=== PATIENT | female | born 1950 | race Caucasian/White ===

== ENCOUNTER 2018-10-27 09:28 | Emergency (ER) | payer MEDICARE, OTHER ==
[~2018-10-27] VITALS: Ht 160 cm; Wt 61.2 kg
[2018-10-27] MEDS ORDERED: GABA800 PO (09:51)
[2018-10-27] MEDS ORDERED: Inderal80 MG (09:51)
[2018-10-27] MEDS ORDERED: Hydrocodone-Ap1 EA20 PO (09:51)
[2018-10-27] MEDS ORDERED: ROSU10TA PO (09:52)
[2018-10-27] MEDS ORDERED: AMLO5 PO (09:52)
[2018-10-27] MEDS ORDERED: LORA1 PO (09:52)
[2018-10-27] MEDS ORDERED: ALBU90OI INH (09:53)
[2018-10-27] MEDS ORDERED: ALEN70 PO (09:53)
[2018-10-27] MEDS ORDERED: PRED20 PO (09:53)
[2018-10-27 11:00] LABS: Calcium, Ionized (POC) 1.04 mmol/L (1.10-1.46); Chloride (POC) 108 mmol/L (98-108); Creatinine (POC) 0.7 mg/dL (0.6-1.0); Glucose (ISTAT POC) 102 mg/dL (70-99); Hemoglobin (POC) 13.3 g/dL (12.0-16.0); Potassium (POC) 3.6 mmol/L (3.5-5.5); Sodium (POC) 146 mmol/L (135-148); Total CO2 (POC) 26 mmol/L (21-32)
[2018-10-27] MEDS ORDERED: Norco 5-325 Ta1 EACH PO (11:59)
[2018-10-27] MEDS ORDERED: Colace250 MG PO (11:59)
== END 2018-10-27 12:14 | disposition home or self-care (01) ==
LOC: ER 09:28
PROVIDERS: Internal Medicine
DX: S22.089A Unspecified fracture of T11-T12 vertebra, initial encounter for closed fracture (principal); I10 Essential (primary) hypertension; F41.9 Anxiety disorder, unspecified; E78.5 Hyperlipidemia, unspecified; Z88.0 Allergy status to penicillin; Z79.899 Other long term (current) drug therapy; Z79.52 Long term (current) use of systemic steroids; W18.30XA Fall on same level, unspecified, initial encounter
CPT/HCPCS: 72100; 80047; 85014; 96360; 96361; 99284-25; J7030

== ENCOUNTER 2018-10-31 23:28 | Emergency (ER) | payer MEDICARE, OTHER ==
[~2018-10-31] VITALS: Ht 160 cm; Wt 61.2 kg
[~2018-10-31 23:28] MED LIST: ALBU90OI INH; ALEN70 PO; AMLO5 PO; Colace250 MG PO; GABA800 PO; Hydrocodone-Ap1 EA20 PO; Inderal80 MG; LORA1 PO; Norco 5-325 Ta1 EACH PO; PRED20 PO; ROSU10TA PO
[2018-11-01] MEDS ORDERED: LIDO700A20 TOP (01:01)
[2018-11-01] MEDS ORDERED: IBUP600 PO (01:01)
[2018-11-01] MEDS ORDERED: Norco 5-325 Ta1 EACH PO (01:01)
[2018-11-01] MEDS ORDERED: ONDA4ODT MM (01:11)
== END 2018-11-01 01:24 | disposition home or self-care (01) ==
LOC: ER 23:28
DX: S22.089D Unspecified fracture of T11-T12 vertebra, subsequent encounter for fracture with routine healing (principal); W19.XXXD Unspecified fall, subsequent encounter; Z88.0 Allergy status to penicillin; Z79.899 Other long term (current) drug therapy; Z79.52 Long term (current) use of systemic steroids; I10 Essential (primary) hypertension; E78.5 Hyperlipidemia, unspecified; F41.9 Anxiety disorder, unspecified; F17.200 Nicotine dependence, unspecified, uncomplicated
CPT/HCPCS: 72080; 96374; 96375; 99283-25; J2405; J3010

== ENCOUNTER 2019-04-11 13:09 | Observation (INO) | payer MEDICARE, OTHER ==
[~2019-04-11] VITALS: Ht 162.6 cm; Wt 68.0 kg
[~2019-04-11 13:09] MED LIST changes: +IBUP600 PO; -Inderal80 MG; +LIDO700A20 TOP; +ONDA4ODT MM; +PROP80ER PO; -ROSU10TA PO; +ROSU5 PO
[2019-04-11 13:38] LABS: BASOPHILS ABSOLUTE AUTO 0.04 K/mm3 (0.00-0.23); BASOPHILS PERCENT AUTO 1 % (0-2); EOSINOPHILS ABSOLUTE AUTO 0.09 K/mm3 (0.00-0.68); EOSINOPHILS PERCENT AUTO 1 % (0-6); Hematocrit 44.6 % (33.0-51.0); Hemoglobin 14.8 g/dL (11.5-16.0); IMMATURE GRAN ABSOLUTE AUTO 0.03 K/mm3 (0.00-0.10); IMMATURE GRAN PERCENT AUTO 0 % (0-1); LYMPHOCYTES ABSOLUTE AUTO 1.56 K/mm3 (0.84-5.20); LYMPHOCYTES PERCENT AUTO 23 % (21-46); MONOCYTES ABSOLUTE AUTO 0.77 K/mm3 (0.16-1.47); MONOCYTES PERCENT AUTO 11 % (4-13); Mean Corpuscular HGB 33.5 pg (26.0-34.0); Mean Corpuscular HGB Conc 33.2 g/dL (31.5-36.5); Mean Corpuscular Volume 101 fL (80-100); Mean Platelet Volume 10.1 fL (9.1-12.4); NEUTROPHILS ABSOLUTE AUTO 4.36 K/mm3 (1.96-9.15); NEUTROPHILS PERCENT AUTO 64 % (41-73); Platelet Count 182 K/mm3 (150-400); RDW Coefficient Variation 12.9 % (11.7-14.2); RDW Standard Deviation 48.3 fL (35.1-46.3); Red Blood Cell Count 4.42 M/mm3 (3.80-5.20); White Blood Cell Count 6.85 K/mm3 (4.00-11.30)
[2019-04-11 14:49] LABS: Alanine Aminotransfer (ALT/SGP 15 U/L (12-78); Albumin, Blood 3.3 g/dL (3.4-5.0); Albumin/Globulin Ratio 1.1 (0.8-1.8); Alk Phos 73 U/L (50-136); Anion Gap 3 mmol/L (6-16); Aspartate Aminotrans (AST/SGOT 28 U/L (12-37); Bilirubin, Total 0.5 mg/dL (0.1-1.0); Blood Urea Nitrogen 6 mg/dL (8-24); Bun/Creatinine Ratio 7.8 (12.0-20.0); CO2, Blood 28 mmol/L (21-32); Calcium, Blood 8.4 mg/dL (8.5-10.1); Chloride, Blood 110 mmol/L (98-108); Creatinine, Blood 0.77 mg/dL (0.40-1.00); Glomerular Filtration Rate >60 (60-); Glucose, Blood 72 mg/dL (70-99); Potassium, Blood 4.4 mmol/L (3.5-5.5); Sodium, Blood 141 mmol/L (136-145); Total Protein, Blood 6.3 g/dL (6.4-8.2)
[2019-04-11 14:56] LABS: Free Thyroxine 0.78 ng/dL (0.70-1.60); Magnesium, Blood 2.2 mg/dL (1.6-2.4)
[2019-04-11 14:59] LABS: Thyroid Stimulating Hormone 1.21 uIU/mL (0.360-4.800)
[2019-04-11] MEDS ORDERED: Lamotrigine100 MG PO (14:59)
[2019-04-11 15:14] LABS: Source, Urine Clean Catch
[2019-04-11 15:23] LABS: Bilirubin, Urine Neg (Neg); Blood, Urine 1+ (Neg); Glucose Qualitative, Urine Neg (Neg); Ketones, Urine Neg (Neg); Leukocyte Esterase, Urine Neg (Neg); Nitrite, Urine Neg (Neg); Protein, Urine Neg (Neg); Urobilinogen, Urine NORM (Normal)
[2019-04-11 15:32] LABS: Appearance, Urine Clear (Clear); Color, Urine Yellow (P-Yellow)
[2019-04-11 15:33] LABS: Bacteria Not Seen /hpf; Red Blood Cells, Urine 0-2 /hpf (0-2); Squamous Epithelial Cells Rare /hpf (Few); White Blood Cells, Urine 0-2 /hpf (0-5)
[2019-04-11] MEDS ORDERED: GABA400 PO (15:39)
[2019-04-11] MEDS ORDERED: ASCO500 PO (16:06)
[2019-04-11] MEDS ORDERED: DIPH50 PO (16:06)
[2019-04-11] MEDS ORDERED: VITAMIN D5000 UNIT PO (16:06)
--- NOTE | 2019-04-11 19:36 | NUR ---
Transfer report recieved from Lucie ARIZA in ER on PT being admitted with nilat le weakness and dizziness. T 12 compression fx 09/2018 ct of head and spine negative of acute changes. Await admission
--- NOTE | 2019-04-12 05:19 | NUR ---
68 year old Female appears older than actual age admitted with bilateral LE weakness and dizziness. PT admits to falling recently. DTR and [place] live with PT who had T 12 compression fx in 09/2018. CT of spine and head showed no acute changes but compression fx still present. PT told ER she did wear TLSO brace but has been released from wearing. Very poor safety awareness, PT is labile at times. Weepy and emotional intermittantly. Forgetful and angry we are using fall precautions including bed alarm. Medicated with tylenol 650 mg for co gen body aches 05/09 with helpful effect. Ativan 1 mg po x 1 for anxiety with some relief. Sets off bed alarm multiple times wanting to self transfer. Smoker and out x 1 in WC to smoke with DTR.Has pacemaker and is atrial paced. DNR status PT denies Polst or AD says everyone just knows. HAs PT eval pending. Transferred to [facility] with FWW and gait belt.
--- NOTE | 2019-04-12 06:30 | NUR ---
PT"S DTR called and said her Mom falls at home and she is unsafe to ambulate. She has 14 steps to get in and out of Home. PT has poor safety awareness, fall precautions continue and PT has attempted multiple times to get out of bed unassisted. Educated on fall prevention PT and DTR and Son in law.
--- NOTE | 2019-04-12 17:55 | NUR ---
SHIFT SUMMARY 68 YR OLD FEMALE ADMITTED FOR BLE WEAKNESS. DNR CODE. FREQUENT FALLS AT HOME. PT STATES DOUBLE VISION PRECEDES THESE FALLS. PACEMAKER. REGULAR DIET. PT EVAL TODAY RECOMMENDS HOME WITH FWW AND HOME HEALTH, SUPERVISION FROM FAMILY WHEN AMBULATING STAIRS. SHE LIVES WITH DAUGHTER KRYSTLE. NO IV ACCESS. ROOM AIR. HX: PTSD, ANXIETY, T-12 FRACTURE, AFIB, ARTHRITIS. ATIVAN IS AVAILABLE BID. I DID GIVE ONE DOSE DURING MY SHIFT EARLY. THIS AFTERNOON HER AFFECT HAS BEEN MORE POSITIVE AND CONTENT. SCHEDULED ASPIRIN WAS ADDED TODAY FOR PAIN. PLAN IS FOR POSSIBLE DC TOMORROW W/HEALTH INFORMATION TECH ASSISTANCE OFFERED.
--- NOTE | 2019-04-13 04:55 | NUR ---
SHIFT SUMMARY: 68 Y/O FEMALE RESTED COMFORTABLY ALL SHIFT, DENIES PAIN OR NAUSEA, GAIT SLOW AND STEADY IN ROOM VIA WALKER, ALERT AND ORIENTED X 4, PT HOPING FOR POSSIBLE DISCHARGE HOME TODAY TO [facility]. PTS BED LOW POSITION, CALL LIGHT AT SIDE.
[2019-04-13] MEDS ORDERED: MOTION RELIEF25 MG PO (09:09)
--- NOTE | 2019-04-13 09:10 | NUR ---
FOLLOW UP APPOINTMENTS SCHEDULE WITH DR RHOADES May AT 10:10, THEY DO NOT HAVE ANYTHING SOONER FOR THE PT. ALSO DR GASTON WEEKS DOES NOT HAVE AVAILABILITY, APPT MADE WITH CARLIE GENAO FOR March AT 12:45. PT REQUESTING [id number].
--- NOTE | 2019-04-13 10:39 | NUR ---
PT DISCHARGED PT DISCHARGED AT 1006. PT IN STABLE CONDITION WITH VSS. NO CHANGES IN ASSESSMENT. PT INSTRUCTED ON DC INFO & WHEELED OUT BY HER RIDE. PT GIVEN RIDE HOME BY FRIEND. PT DENIED FURTHER NEED FOR INSTRUCTIONS PRIOR TO DC.
== END 2019-04-13 10:10 | disposition home health service (06) ==
LOC: ER 13:09 → MEDS 13:10 → ENPENDDIS 04-13 08:40 → MEDS 04-13 10:10
PROVIDERS: Emergency Medicine; ADMIT Hospitalist
DX: R29.898 Other symptoms and signs involving the musculoskeletal system (principal); R42 Dizziness and giddiness; M48.04 Spinal stenosis, thoracic region; I48.91 Unspecified atrial fibrillation; F43.12 Post-traumatic stress disorder, chronic; Z87.891 Personal history of nicotine dependence; Z79.899 Other long term (current) drug therapy; Z87.81 Personal history of (healed) traumatic fracture; W19.XXXA Unspecified fall, initial encounter
CPT/HCPCS: 70450; 71046; 72131; 80053; 81001; 83735; 84439; 84443; 85025; 85651; 86140; 93005; 93010; 97116; 97162; 99285-25; A9270; G0378; Q0163

== ENCOUNTER 2019-04-27 12:02 | Emergency (ER) | payer MEDICARE, OTHER ==
[~2019-04-27] VITALS: Ht 162.6 cm; Wt 62.6 kg
[~2019-04-27 12:02] MED LIST changes: +ASCO500 PO; +DIPH50 PO; +GABA400 PO; +Lamotrigine100 MG PO; +MOTION RELIEF25 MG PO; +VITAMIN D5000 UNIT PO
[2019-04-27 13:06] LABS: BASOPHILS ABSOLUTE AUTO 0.05 K/mm3 (0.00-0.23); BASOPHILS PERCENT AUTO 1 % (0-2); EOSINOPHILS ABSOLUTE AUTO 0.11 K/mm3 (0.00-0.68); EOSINOPHILS PERCENT AUTO 2 % (0-6); Hematocrit 46.9 % (33.0-51.0); Hemoglobin 15.5 g/dL (11.5-16.0); IMMATURE GRAN ABSOLUTE AUTO 0.02 K/mm3 (0.00-0.10); IMMATURE GRAN PERCENT AUTO 0 % (0-1); LYMPHOCYTES PERCENT AUTO 24 % (21-46); MONOCYTES ABSOLUTE AUTO 0.88 K/mm3 (0.16-1.47); MONOCYTES PERCENT AUTO 12 % (4-13); Mean Corpuscular Volume 100 fL (80-100); Mean Platelet Volume 10.8 fL (9.1-12.4); NEUTROPHILS ABSOLUTE AUTO 4.68 K/mm3 (1.96-9.15); NEUTROPHILS PERCENT AUTO 62 % (41-73); Platelet Count 156 K/mm3 (150-400); RDW Coefficient Variation 12.7 % (11.7-14.2); RDW Standard Deviation 47.7 fL (35.1-46.3); White Blood Cell Count 7.54 K/mm3 (4.00-11.30)
[2019-04-27 13:15] LABS: Alanine Aminotransfer (ALT/SGP 17 U/L (12-78); Albumin, Blood 3.9 g/dL (3.4-5.0); Albumin/Globulin Ratio 1.2 (0.8-1.8); Alk Phos 89 U/L (50-136); Anion Gap 6 mmol/L (6-16); Aspartate Aminotrans (AST/SGOT 20 U/L (12-37); Bilirubin, Total 0.6 mg/dL (0.1-1.0); Blood Urea Nitrogen 13 mg/dL (8-24); Bun/Creatinine Ratio 20.9 (12.0-20.0); CO2, Blood 27 mmol/L (21-32); Calcium, Blood 9.3 mg/dL (8.5-10.1); Chloride, Blood 107 mmol/L (98-108); Creatinine, Blood 0.62 mg/dL (0.40-1.00); Globulin, Blood 3.3 g/dL (2.2-4.0); Glomerular Filtration Rate >60 (60-); Glucose, Blood 101 mg/dL (70-99); Potassium, Blood 4.2 mmol/L (3.5-5.5); Sodium, Blood 140 mmol/L (136-145); Total Protein, Blood 7.2 g/dL (6.4-8.2); Troponin I <0.015 ng/mL (0.000-0.040)
== END 2019-04-27 15:24 | disposition home or self-care (01) ==
LOC: ER 12:02
PROVIDERS: Physician Assistant
DX: I10 Essential (primary) hypertension (principal); Z79.899 Other long term (current) drug therapy; F17.200 Nicotine dependence, unspecified, uncomplicated
CPT/HCPCS: 36415; 71046; 80053; 84484; 85025; 93005; 93010; 99284-25

== ENCOUNTER 2023-05-07 11:56 | Day surgery (SDC) | payer MEDICARE, OTHER | END 2023-05-07 16:22 | disposition home or self-care (01) | LOC: ORSCSDS 11:56 | PROC: 0DBL8ZX Excision of Transverse Colon, Via Natural or Artificial Opening Endoscopic, Diagnostic (ICD-10-PCS; principal; 2023-05-07) | PROC: 0DBH8ZX Excision of Cecum, Via Natural or Artificial Opening Endoscopic, Diagnostic (ICD-10-PCS; principal; 2023-05-07) | PROC: 0DBN8ZX Excision of Sigmoid Colon, Via Natural or Artificial Opening Endoscopic, Diagnostic (ICD-10-PCS; principal; 2023-05-07) | DX: K59.09 Other constipation (principal); D12.0 Benign neoplasm of cecum; D12.3 Benign neoplasm of transverse colon; K63.5 Polyp of colon; K63.89 Other specified diseases of intestine; K57.30 Diverticulosis of large intestine without perforation or abscess without bleeding; K64.4 Residual hemorrhoidal skin tags; I10 Essential (primary) hypertension; J45.909 Unspecified asthma, uncomplicated; E78.5 Hyperlipidemia, unspecified; Z95.0 Presence of cardiac pacemaker; M79.7 Fibromyalgia; Z79.899 Other long term (current) drug therapy; Z87.891 Personal history of nicotine dependence ==

== ENCOUNTER 2024-04-22 06:10 | Day surgery (SDC) | payer MEDICARE, OTHER ==
[~2024-04-22] VITALS: Ht 160 cm; Wt 70.5 kg
[~2024-04-22 06:10] MED LIST changes: +CYCL10 PO; +LORAZEPAM0.5 MG PO; +LOSARTAN POTASS25 M2 PO; +Lactated Ringer's 1,000 ML IV ONE; +METO100ER PO; +METOPROLOL SUCC25 MG PO; +NEURONTIN40010 PO; +ROSUVASTATIN CA20 MG PO
[2024-04-22] MEDS ORDERED: OxyCODONE HCL 10 MG TABCR ONE (06:43)
[2024-04-22] MEDS ORDERED: Acetaminophen 500 MG Tab ONE (06:43)
[2024-04-22] MEDS ORDERED: Chlorhexidine Mouth Care 15 ML UDC MT SCH (06:50)
[2024-04-22] MEDS ORDERED: CeFAZolin Sodium 2,000 MG VIAL ONE (06:52)
[2024-04-22] MEDS ORDERED: FentaNYL Citrate 50 MCG/ML 2 ML Injection ONE (06:52)
[2024-04-22] MEDS ORDERED: propofoL 20 ML IV ONE (06:52)
[2024-04-22] MEDS ORDERED: NS 50 ML IV ONE (06:53)
[2024-04-22] MEDS ORDERED: Ondansetron HCl 2 MG / ML 2ML Vial ONE ×2 (06:54→09:21)
[2024-04-22] MEDS ORDERED: Dexamethasone Sod Phos 10 MG/ML 1ML VIAL ONE ×2 (06:54→09:21)
[2024-04-22] MEDS ORDERED: METO50ER PO (06:58)
[2024-04-22] MEDS ORDERED: Ropivacaine 0.5% HCL/PF 5 MG/ML 30ML Vial ONE (06:59)
[2024-04-22] MEDS ORDERED: KAPSPARGO SPRIN50 MG PO (07:00)
[2024-04-22] MEDS ORDERED: ELIQUIS5 M3 PO (07:02)
[2024-04-22] MEDS ORDERED: Methocarbamol750 MG (07:03)
[2024-04-22] MEDS ORDERED: FUROSEMIDE20 MG PO (07:04)
[2024-04-22] MEDS ORDERED: MAGNESIUM (07:05)
[2024-04-22] MEDS ORDERED: FLUT.05NI (07:05)
[2024-04-22] MEDS ORDERED: Lactated Ringer's 1,000 ML IV ONE (07:10)
--- NOTE | 2024-04-22 07:57 | NUR ---
[facility] [facility] NOTIFIED THAT PATIENT LAST TOOK ELIQUIS "3 OR 4 DAYS AGO" PER DR RHOADES OK TO PROCEED
[2024-04-22] MEDS ORDERED: ePHEDrine Sulfate 50 MG/ML 1ML Injection ONE (08:09)
--- NOTE | 2024-04-22 08:39 | NUR ---
04/22/24 0839 Maribeth Carcamo 2X SASFETY STRAPS WITH 1X GEL PAD UNDER EACH STRAP. 1X GEL PAD BETWEEN PTS ARM AND RIGHT ARM BOARD. 1X GEL UNDER PTS BOTTOM. STANDARD FOAM BUMPER OVER PTS FACE.
[2024-04-22] MEDS ORDERED: Sugammadex Sodium 200 MG/2ML SDV (100 MG/ML) ONE (09:14)
[2024-04-22] MEDS ORDERED: Phenylephrine HCl 100 MCG/ML-NS 10MLSYR (1MG/10ML) ONE (09:20)
[2024-04-22] MEDS ORDERED: Rocuronium Bromide 10 MG/ML 5ML Injection IV ONE ×2 (09:20)
--- NOTE | 2024-04-22 10:35 | NUR ---
04/22/24 1034 JOVANNI MARTIN TRIED MULTIPLE SITES FOR EKG LEADS. ALL SHOW MUCH ARTIFACT. HAD DR. MCRAE LOOK AT MONITOR. STATES IT WAS FINE IN OR. CONFIRMED THAT PT WAS NOT MOVING. HE WAS NOT CONCERNED OF READING FOR 3LEAD.
--- NOTE | 2024-04-22 10:44 | NUR ---
04/22/24 1044 JOVANNI MARTIN NOTIFIED OF NEED FOR XRAY
[2024-04-22 10:52] VITALS: BP 93/65
[2024-04-22] MEDS ORDERED: Ipratropium/Albuterol SulF 2.5-0.5MG/3 ML Amp ONE (11:36)
== END 2024-04-22 12:31 | disposition home or self-care (01) ==
LOC: ORSCSDS 06:10
PROVIDERS: Orthopaedic Surgery
PROC: 0RRK00Z Replacement of Left Shoulder Joint with Reverse Ball and Socket Synthetic Substitute, Open Approach (ICD-10-PCS; principal; 2024-04-22 07:30)
DX: M19.012 Primary osteoarthritis, left shoulder (principal); I10 Essential (primary) hypertension; E78.5 Hyperlipidemia, unspecified; I48.0 Paroxysmal atrial fibrillation; Z79.01 Long term (current) use of anticoagulants; I50.9 Heart failure, unspecified; Z87.891 Personal history of nicotine dependence; Z79.899 Other long term (current) drug therapy; J44.9 Chronic obstructive pulmonary disease, unspecified; D89.89 Other specified disorders involving the immune mechanism, not elsewhere classified; F41.9 Anxiety disorder, unspecified; F32.A Depression, unspecified
CPT/HCPCS: 73030; A9270; C1713; C1776; J0690; J1100; J2371; J2405; J2704; J2795; J3010; J7120

== ENCOUNTER 2024-09-08 07:54 | Day surgery (SDC) | payer MEDICARE, OTHER ==
[~2024-09-08] VITALS: Ht 162.6 cm; Wt 66.0 kg
[~2024-09-08 07:54] MED LIST changes: +Balanced Salt Epinephrine Irrigation Solution 500 mL IR SCH; +ELIQUIS5 M3 PO; +FLUT.05NI; +FUROSEMIDE20 MG PO; +KAPSPARGO SPRIN50 MG PO; -Lactated Ringer's 1,000 ML IV ONE; +Lidocaine HCl/Pf 1% 5 ML VIAL XX SCH; +MAGNESIUM; +METO50ER PO; +Methocarbamol750 MG; +Moxifloxacin HCL 0.5 MG/0.1 ML 0.4MLSYR LEFTEYE SCH; +PHENYLEPHRINE\\TROPICAMIDE\\TETRACAINE OPHTHALMIC DILATING SOLN LEFTEYE PRN; +Povidone-Iodine 450 DROP/30 ML Solution LEFTEYE SCH; +Povidone-Iodine 450 DROP/30 ML Solution ONE; +Tetracaine HCl/Pf 0.5% Opth Soln 4 ml ONE
[2024-09-08] MEDS ORDERED: CELE100 PO (08:28)
[2024-09-08] MEDS ORDERED: GABA100 PO (08:28)
--- NOTE | 2024-09-08 08:36 | NUR ---
09/08/24 0836 Marion Tomlin AT 0833 PLEDANIELET AT 0860
[2024-09-08] MEDS ORDERED: Diazepam 2 MG Tab ONE (08:38)
[2024-09-08] MEDS ORDERED: Tetracaine HCl 0.5% Opth Soln 15 ml LEFTEYE ONE (09:05)
[2024-09-08 09:53] VITALS: BP 113/85
== END 2024-09-08 09:43 | disposition home or self-care (01) ==
LOC: ORSCSDS 07:54
PROVIDERS: Student in an Organized Health Care Education/Training Program
PROC: 08RK3JZ Replacement of Left Lens with Synthetic Substitute, Percutaneous Approach (ICD-10-PCS; principal; 2024-09-08 09:30)
DX: H25.813 Combined forms of age-related cataract, bilateral (principal); H35.3221 Exudative age-related macular degeneration, left eye, with active choroidal neovascularization; H35.3112 Nonexudative age-related macular degeneration, right eye, intermediate dry stage; E78.5 Hyperlipidemia, unspecified; F32.9 Major depressive disorder, single episode, unspecified; Z95.0 Presence of cardiac pacemaker; J45.909 Unspecified asthma, uncomplicated; I10 Essential (primary) hypertension; F41.1 Generalized anxiety disorder; I48.91 Unspecified atrial fibrillation; Z87.891 Personal history of nicotine dependence; Z79.01 Long term (current) use of anticoagulants; Z79.899 Other long term (current) drug therapy
CPT/HCPCS: A9270; V2632

== ENCOUNTER 2024-09-15 07:52 | Day surgery (SDC) | payer MEDICARE, OTHER ==
[~2024-09-15] VITALS: Ht 162.6 cm; Wt 65.9 kg
[~2024-09-15 07:52] MED LIST changes: +CELE100 PO; +GABA100 PO; -Moxifloxacin HCL 0.5 MG/0.1 ML 0.4MLSYR LEFTEYE SCH; +Moxifloxacin HCL 0.5 MG/0.1 ML 0.4MLSYR RIGHTEYE SCH; -PHENYLEPHRINE\\TROPICAMIDE\\TETRACAINE OPHTHALMIC DILATING SOLN LEFTEYE PRN; +PHENYLEPHRINE\\TROPICAMIDE\\TETRACAINE OPHTHALMIC DILATING SOLN RIGHTEYE PRN; -Povidone-Iodine 450 DROP/30 ML Solution LEFTEYE SCH; +Povidone-Iodine 450 DROP/30 ML Solution RIGHTEYE SCH
[2024-09-15] MEDS ORDERED: Diazepam 2 MG Tab ONE (08:34)
--- NOTE | 2024-09-15 08:50 | NUR ---
09/15/24 0850 Leticia Beauchamp CALL LIGHT WITHIN REACH. PT TOOK 5MG VALIUM PO PRIOR TO ARRIVAL TO [facility]. PT STATES ANXIETY LEVEL STILL AT 7/10, 2MG VALIUM PO GIVEN AT 0840 PER ORDER. TETRACAINE IN AT 0835 IN RIGHT EYE AND PLEDGETT IN AT 0836
[2024-09-15] MEDS ORDERED: Tetracaine HCl 0.5% Opth Soln 15 ml RIGHTEYE ONE (09:16)
[2024-09-15 09:38] VITALS: BP 111/66
== END 2024-09-15 10:02 | disposition home or self-care (01) ==
LOC: ORSCSDS 07:52
PROVIDERS: Student in an Organized Health Care Education/Training Program
PROC: 08RJ3JZ Replacement of Right Lens with Synthetic Substitute, Percutaneous Approach (ICD-10-PCS; principal; 2024-09-15 09:30)
DX: H25.811 Combined forms of age-related cataract, right eye (principal); Z96.1 Presence of intraocular lens; I10 Essential (primary) hypertension; E78.5 Hyperlipidemia, unspecified; I48.91 Unspecified atrial fibrillation; Z95.0 Presence of cardiac pacemaker; F41.9 Anxiety disorder, unspecified; M79.7 Fibromyalgia; Z87.891 Personal history of nicotine dependence; Z79.01 Long term (current) use of anticoagulants; Z79.899 Other long term (current) drug therapy
CPT/HCPCS: A9270; V2632

== ENCOUNTER 2025-01-12 15:56 | Emergency (ER) | payer MEDICARE, OTHER ==
[~2025-01-12] VITALS: Ht 165.1 cm; Wt 77.1 kg
[~2025-01-12 15:56] MED LIST changes: -Balanced Salt Epinephrine Irrigation Solution 500 mL IR SCH; -Lidocaine HCl/Pf 1% 5 ML VIAL XX SCH; -Moxifloxacin HCL 0.5 MG/0.1 ML 0.4MLSYR RIGHTEYE SCH; -PHENYLEPHRINE\\TROPICAMIDE\\TETRACAINE OPHTHALMIC DILATING SOLN RIGHTEYE PRN; -Povidone-Iodine 450 DROP/30 ML Solution ONE; -Povidone-Iodine 450 DROP/30 ML Solution RIGHTEYE SCH; -Tetracaine HCl/Pf 0.5% Opth Soln 4 ml ONE
[2025-01-12 17:31] LABS: Albumin, Blood 3.5 g/dL (3.4-5.0); Albumin/Globulin Ratio 1.3 (0.8-1.8); Bilirubin, Total 0.9 mg/dL (0.1-1.0); Bun/Creatinine Ratio 25.9 (12.0-20.0); Calcium, Blood 9.5 mg/dL (8.5-10.1); Creatinine, Blood 0.85 mg/dL (0.40-1.00); Globulin, Blood 2.7 g/dL (2.2-4.0); Potassium, Blood 4.8 mmol/L (3.5-5.5); Total Protein, Blood 6.2 g/dL (6.4-8.2)
[2025-01-12 17:34] LABS: BASOPHILS ABSOLUTE AUTO 0.02 K/mm3 (0.00-0.23); BASOPHILS PERCENT AUTO 0 % (0-2); EOSINOPHILS PERCENT AUTO 0 % (0-6); Hematocrit 37.8 % (33.0-51.0); Hemoglobin 12.9 g/dL (11.5-16.0); IMMATURE GRAN ABSOLUTE AUTO 0.07 K/mm3 (0.00-0.10); IMMATURE GRAN PERCENT AUTO 1 % (0-1); LYMPHOCYTES PERCENT AUTO 11 % (21-46); MONOCYTES ABSOLUTE AUTO 0.39 K/mm3 (0.16-1.47); MONOCYTES PERCENT AUTO 4 % (4-13); Mean Corpuscular HGB 33.2 pg (26.0-34.0); Mean Corpuscular HGB Conc 34.1 g/dL (31.5-36.5); Mean Corpuscular Volume 97 fL (80-100); Mean Platelet Volume 10.3 fL (9.1-12.4); NEUTROPHILS ABSOLUTE AUTO 8.87 K/mm3 (1.96-9.15); NEUTROPHILS PERCENT AUTO 84 % (41-73); Platelet Count 162 K/mm3 (150-400); RDW Coefficient Variation 14.4 % (11.7-14.2); RDW Standard Deviation 50.8 fL (35.1-46.3); Red Blood Cell Count 3.89 M/mm3 (3.80-5.20); White Blood Cell Count 10.55 K/mm3 (4.00-11.30)
[2025-01-12 19:24] VITALS: BP 99/70
== END 2025-01-12 19:31 | disposition home or self-care (01) ==
LOC: ER 15:56
PROVIDERS: Emergency Medicine
DX: R60.0 Localized edema (principal); I10 Essential (primary) hypertension; J45.909 Unspecified asthma, uncomplicated; I48.91 Unspecified atrial fibrillation; Z95.0 Presence of cardiac pacemaker; Z87.891 Personal history of nicotine dependence; Z88.0 Allergy status to penicillin; Z88.8 Allergy status to other drugs, medicaments and biological substances; Z88.5 Allergy status to narcotic agent; Z79.01 Long term (current) use of anticoagulants; Z79.1 Long term (current) use of non-steroidal anti-inflammatories (NSAID); Z79.899 Other long term (current) drug therapy
CPT/HCPCS: 71046; 80053; 83880; 84484; 85025; 93005; 93010; 93971; 99284-25

== ENCOUNTER 2025-05-16 10:58 | Emergency (ER) | payer MEDICARE, OTHER ==
[~2025-05-16] VITALS: Ht 162.6 cm; Wt 63.5 kg
[2025-05-16 12:11] LABS: BASOPHILS ABSOLUTE AUTO 0.05 K/mm3 (0.00-0.23); BASOPHILS PERCENT AUTO 1 % (0-2); EOSINOPHILS ABSOLUTE AUTO 0.07 K/mm3 (0.00-0.68); EOSINOPHILS PERCENT AUTO 1 % (0-6); Hematocrit 34.9 % (33.0-51.0); Hemoglobin 11.6 g/dL (11.5-16.0); IMMATURE GRAN ABSOLUTE AUTO 0.08 K/mm3 (0.00-0.10); IMMATURE GRAN PERCENT AUTO 1 % (0-1); LYMPHOCYTES ABSOLUTE AUTO 2.51 K/mm3 (0.84-5.20); LYMPHOCYTES PERCENT AUTO 32 % (21-46); MONOCYTES ABSOLUTE AUTO 0.84 K/mm3 (0.16-1.47); MONOCYTES PERCENT AUTO 11 % (4-13); Mean Corpuscular HGB Conc 33.2 g/dL (31.5-36.5); Mean Corpuscular Volume 99 fL (80-100); NEUTROPHILS ABSOLUTE AUTO 4.19 K/mm3 (1.96-9.15); NEUTROPHILS PERCENT AUTO 54 % (41-73); NRBC ABSOLUTE 0.00 K/mm3 (0.00-0.02); NRBC Auto 0.0 /100 WBC (0.0-0.2); Platelet Count 156 K/mm3 (150-400); RDW Coefficient Variation 12.6 % (11.7-14.2); RDW Standard Deviation 45.8 fL (35.1-46.3)
[2025-05-16 12:27] LABS: Alanine Aminotransfer (ALT/SGP 33.0 U/L (12-78); Albumin, Blood 3.3 g/dL (3.4-5.0); Albumin/Globulin Ratio 1.0 (0.8-1.8); Anion Gap 6.0 mmol/L (3-11); Aspartate Aminotrans (AST/SGOT 37.0 U/L (12-37); Bilirubin, Total 0.5 mg/dL (0.1-1.0); Blood Urea Nitrogen 11.0 mg/dL (8-24); CO2, Blood 27.0 mmol/L (21-32); Calcium, Blood 8.3 mg/dL (8.5-10.1); Chloride, Blood 106.0 mmol/L (98-108); Creatinine, Blood 0.99 mg/dL (0.40-1.00); Globulin, Blood 3.3 g/dL (2.2-4.0); Glucose, Blood 96.0 mg/dL (70-99); Potassium, Blood 3.9 mmol/L (3.5-5.5); Sodium, Blood 135.0 mmol/L (136-145); Total Protein, Blood 6.6 g/dL (6.4-8.2)
[2025-05-16 13:45] VITALS: BP 119/69
== END 2025-05-16 13:54 | disposition home or self-care (01) ==
LOC: ER 10:58
PROVIDERS: Emergency Medicine
DX: R60.0 Localized edema (principal); J45.909 Unspecified asthma, uncomplicated; I10 Essential (primary) hypertension; F43.10 Post-traumatic stress disorder, unspecified; I48.91 Unspecified atrial fibrillation; Z87.891 Personal history of nicotine dependence; Z79.51 Long term (current) use of inhaled steroids; Z79.899 Other long term (current) drug therapy; Z88.0 Allergy status to penicillin; Z88.5 Allergy status to narcotic agent
CPT/HCPCS: 80053; 83880; 85025; 99284

== ENCOUNTER 2025-08-18 19:19 | Emergency (ER) | payer MEDICARE, OTHER ==
[~2025-08-18] VITALS: Ht 162.6 cm; Wt 65.8 kg
[2025-08-18 19:23] VITALS: BP 147/91
== END 2025-08-18 19:39 | disposition home or self-care (01) ==
LOC: ER 19:19
DX: R57.9 Shock, unspecified (principal); Z76.0 Encounter for issue of repeat prescription; Z87.891 Personal history of nicotine dependence; Z79.51 Long term (current) use of inhaled steroids; Z79.899 Other long term (current) drug therapy; Z88.0 Allergy status to penicillin; Z91.030 Bee allergy status
CPT/HCPCS: 99282

== ENCOUNTER 2025-08-21 10:09 | Inpatient (IN) | payer MEDICARE, OTHER ==
[~2025-08-21] VITALS: Ht 162.6 cm; Wt 67.1 kg
[2025-08-21 10:51] LABS: BASOPHILS ABSOLUTE AUTO 0.04 K/mm3 (0.00-0.23); BASOPHILS PERCENT AUTO 0 % (0-2); EOSINOPHILS ABSOLUTE AUTO 0.06 K/mm3 (0.00-0.68); EOSINOPHILS PERCENT AUTO 1 % (0-6); Hematocrit 36.4 % (33.0-51.0); Hemoglobin 12.6 g/dL (11.5-16.0); IMMATURE GRAN ABSOLUTE AUTO 0.05 K/mm3 (0.00-0.10); IMMATURE GRAN PERCENT AUTO 1 % (0-1); LYMPHOCYTES ABSOLUTE AUTO 0.89 K/mm3 (0.84-5.20); LYMPHOCYTES PERCENT AUTO 9 % (21-46); MONOCYTES ABSOLUTE AUTO 1.04 K/mm3 (0.16-1.47); MONOCYTES PERCENT AUTO 11 % (4-13); Mean Corpuscular HGB Conc 34.6 g/dL (31.5-36.5); Mean Corpuscular Volume 96 fL (80-100); NEUTROPHILS ABSOLUTE AUTO 7.35 K/mm3 (1.96-9.15); NEUTROPHILS PERCENT AUTO 78 % (41-73); NRBC ABSOLUTE 0.00 K/mm3 (0.00-0.02); NRBC Auto 0.0 /100 WBC (0.0-0.2); Platelet Count 184 K/mm3 (150-400); RDW Coefficient Variation 13.3 % (11.7-14.2); RDW Standard Deviation 46.9 fL (35.1-46.3)
[2025-08-21 11:11] LABS: Alanine Aminotransfer (ALT/SGP 27.0 U/L (12-78); Albumin, Blood 3.7 g/dL (3.4-5.0); Albumin/Globulin Ratio 1.0 (0.8-1.8); Anion Gap 12.0 mmol/L (3-11); Aspartate Aminotrans (AST/SGOT 33.0 U/L (12-37); Bilirubin, Total 1.0 mg/dL (0.1-1.0); Blood Urea Nitrogen 17.0 mg/dL (8-24); CO2, Blood 30.0 mmol/L (21-32); Calcium, Blood 9.8 mg/dL (8.5-10.1); Chloride, Blood 92.0 mmol/L (98-108); Creatinine, Blood 1.31 mg/dL (0.40-1.00); Globulin, Blood 3.6 g/dL (2.2-4.0); Glucose, Blood 134.0 mg/dL (70-99); Potassium, Blood 2.8 mmol/L (3.5-5.5); Sodium, Blood 131.0 mmol/L (136-145); Total Protein, Blood 7.3 g/dL (6.4-8.2)
[2025-08-21] MEDS ORDERED: NS 1,000 ML IV SCH ×2 (11:15→18:55)
[2025-08-21 11:26] LABS: Phosphorus, Blood 3.9 mg/dL (2.5-4.9)
[2025-08-21] MEDS ORDERED: FLU VACC TS2025(65UP)/MF59C/PF 45 MCG/0.5 ML SYRINGE IM SCH (18:50)
[2025-08-21] MEDS ORDERED: Ondansetron HCl 2 MG / ML 2ML Vial IV PRN (18:55)
[2025-08-21] MEDS ORDERED: Magnesium Sulf 2 GM/Water 50ML 50 ML IV STA (18:57)
[2025-08-21 20:28] VITALS: BP 109/73
[2025-08-21 21:24] LABS: Source, Urine Clean Catch
[2025-08-21 21:30] LABS: Bilirubin, Urine Neg (Neg); Color, Urine Yellow (P-Yellow); Glucose Qualitative, Urine Neg (Neg); Ketones, Urine Neg (Neg); Leukocyte Esterase, Urine Neg (Neg); Protein, Urine Neg (Neg); Specific Gravity, Urine 1.010 (1.003-1.022); Urobilinogen, Urine NORM (Normal)
[2025-08-21 21:31] LABS: Anion Gap 8.0 mmol/L (3-11); Blood Urea Nitrogen 12.0 mg/dL (8-24); CO2, Blood 28.0 mmol/L (21-32); Calcium, Blood 8.9 mg/dL (8.5-10.1); Chloride, Blood 102.0 mmol/L (98-108); Creatinine, Blood 1.12 mg/dL (0.40-1.00); Glucose, Blood 92.0 mg/dL (70-99); Potassium, Blood 3.3 mmol/L (3.5-5.5); Sodium, Blood 135.0 mmol/L (136-145)
[2025-08-21 23:42] VITALS: BP 102/65
[2025-08-22 04:34] VITALS: BP 121/72
[2025-08-22 05:13] LABS: BASOPHILS ABSOLUTE AUTO 0.04 K/mm3 (0.00-0.23); BASOPHILS PERCENT AUTO 1 % (0-2); EOSINOPHILS ABSOLUTE AUTO 0.09 K/mm3 (0.00-0.68); EOSINOPHILS PERCENT AUTO 2 % (0-6); Hematocrit 33.2 % (33.0-51.0); Hemoglobin 10.9 g/dL (11.5-16.0); IMMATURE GRAN ABSOLUTE AUTO 0.02 K/mm3 (0.00-0.10); IMMATURE GRAN PERCENT AUTO 0 % (0-1); LYMPHOCYTES ABSOLUTE AUTO 0.90 K/mm3 (0.84-5.20); LYMPHOCYTES PERCENT AUTO 16 % (21-46); MONOCYTES ABSOLUTE AUTO 0.76 K/mm3 (0.16-1.47); MONOCYTES PERCENT AUTO 13 % (4-13); Mean Corpuscular HGB Conc 32.8 g/dL (31.5-36.5); Mean Corpuscular Volume 99 fL (80-100); NEUTROPHILS ABSOLUTE AUTO 4.01 K/mm3 (1.96-9.15); NEUTROPHILS PERCENT AUTO 69 % (41-73); NRBC ABSOLUTE 0.00 K/mm3 (0.00-0.02); NRBC Auto 0.0 /100 WBC (0.0-0.2); Platelet Count 149 K/mm3 (150-400); RDW Coefficient Variation 13.7 % (11.7-14.2); RDW Standard Deviation 50.0 fL (35.1-46.3)
[2025-08-22 05:43] LABS: Alanine Aminotransfer (ALT/SGP 22.0 U/L (12-78); Albumin, Blood 2.9 g/dL (3.4-5.0); Albumin/Globulin Ratio 1.0 (0.8-1.8); Anion Gap 9.0 mmol/L (3-11); Aspartate Aminotrans (AST/SGOT 28.0 U/L (12-37); Bilirubin, Total 0.6 mg/dL (0.1-1.0); Blood Urea Nitrogen 12.0 mg/dL (8-24); CO2, Blood 26.0 mmol/L (21-32); Calcium, Blood 8.7 mg/dL (8.5-10.1); Chloride, Blood 103.0 mmol/L (98-108); Creatinine, Blood 1.02 mg/dL (0.40-1.00); Globulin, Blood 2.9 g/dL (2.2-4.0); Glucose, Blood 103.0 mg/dL (70-99); Magnesium, Blood 3.1 mg/dL (1.6-2.4); Potassium, Blood 3.3 mmol/L (3.5-5.5); Sodium, Blood 135.0 mmol/L (136-145); Total Protein, Blood 5.8 g/dL (6.4-8.2)
--- NOTE | 2025-08-22 07:13 | NUR ---
END OF SHIFT SUMMARY: A&Ox4. PLEASANT AND COOPERATIVE WITH CARE. CALLS APPROPRIATELY AND IS ABLE TO ADVOCATE NEEDS EFFECTIVELY. VSS. TELE STRIP IN CHART REVIEWED AND INTERPRETED SINUS. BREATHING EVEN AND UNLABORED c RA. CONTINENT OF BOWEL AND EXPERIENCES URINARY URGE INCONTINENCE. TOLERATING DIET. UNABLE TO AMBULATE AT THIS TIME, BUT ABLE TO STAND-PIVOT TO [facility]. MEDS WHOLE c FLUIDS. ROOMMATE MANAGES MEDICATIONS AND WILL BRING MED LIST IN TODAY. HIGH ANXIETY. POOR HISTORIAN. BED IN LOWEST POSITION, CALL LIGHT WITHIN REACH, ALL NEEDS MET. REPORT TO ONCOMING NURSE.
[2025-08-22 07:37] VITALS: BP 133/72
[2025-08-22] MEDS ORDERED: CATAPRES0.2 M1 PO (09:57)
[2025-08-22 12:02] VITALS: BP 127/68
[2025-08-22] MEDS ORDERED: HYDROcodone 10-APAP 325 TAB PO PRN (12:55)
[2025-08-22 15:09] VITALS: BP 123/66
--- NOTE | 2025-08-22 16:57 | NUR ---
SHIFT SUMMARY PT AOX3/4, COOPERATIVE, ABLE TO MAKE NEEDS KNOWN. PT IS SBA/1 PERSON ASSIST TO COMMODE FOR VOIDING. FLUIDS RUNNING 100ML/HR, ON ROOM AIR, TELE ACTIVE. PT DOES REPORT SOME CONFUSION, AND SELF AWARENESS OF THIS. PT C/O OF RIGHT SHOULDER PAIN, MEDICATING PER EMAR. BED IN LOWEST POSITION, CALL LIGHT WITHIN REACH.
[2025-08-22 20:01] VITALS: BP 98/73
[2025-08-23] VITALS (7 sets, daily range): BP systolic 112–150; BP diastolic 65–86
--- NOTE | 2025-08-23 04:55 | NUR ---
END OF SHIFT SUMMARY: A&Ox4. PLEASANT AND COOPERATIVE WITH CARE. CALLS APPROPRIATELY AND IS ABLE TO ADVOCATE NEEDS EFFECTIVELY. VSS. TELE STRIP IN CHART REVIEWED: SR @ 81bpm c QTC 0.45. INDEPENDENTLY TRANSFERRED TO [facility] TONIGHT. TOLERATING DIET. DOES EXPRESS SOME ANXIETY AND DEPRESSION TODAY. MEDS WHOLE c FLUIDS. MEDICATED PRN LEG, SHOULDER AND CHRONIC BACK PAIN. LABS ORDERED FOR THIS MORNING. BED IN LOWEST POSITION, CALL LIGHT WITHIN REACH, ALL NEEDS MET. REPORT TO ONCOMING NURSE.
[2025-08-23 06:00] LABS: Magnesium, Blood 2.4 mg/dL (1.6-2.4)
[2025-08-23 06:01] LABS: Anion Gap 8.0 mmol/L (3-11); Blood Urea Nitrogen 13.0 mg/dL (8-24); CO2, Blood 24.0 mmol/L (21-32); Calcium, Blood 8.5 mg/dL (8.5-10.1); Chloride, Blood 108.0 mmol/L (98-108); Creatinine, Blood 0.83 mg/dL (0.40-1.00); Glucose, Blood 106.0 mg/dL (70-99); Potassium, Blood 4.1 mmol/L (3.5-5.5); Sodium, Blood 136.0 mmol/L (136-145)
[2025-08-23] MEDS ORDERED: Albuterol HFA200 ACT/6.7 GM INH INH PRN (08:50)
[2025-08-23] MEDS ORDERED: Cholecalciferol 1000 Unit Tablet (=25MCG) PO SCH (09:00)
--- NOTE | 2025-08-23 18:44 | NUR ---
SHIFT SUMMARY PT A&OX4 FORGETFUL AT TIMES, VSS, RA, TELE DC TODAY. IND IN ROOM, WORKED WITH PHYSICAL THERAPY TODAY RECOMMENDS HH. PAIN MANAGED WITH PRN NORCO. PT PLEASANT AND COOPERATIVE WITH CARE, CALL LIGHT IN REACH.
[2025-08-23] MEDS ORDERED: K-Dur10 MEQ PO (20:35)
[2025-08-23] MEDS ORDERED: BACL10 PO (20:38)
[2025-08-23] MEDS ORDERED: Amitriptyline H10 MG PO (20:39)
--- NOTE | 2025-08-23 22:22 | NUR ---
SPOKE WITH JUANITA ABOUT MEDS ON MED REC, HE OKAY'D AMITRIPTYLINE 10MG HS, BACLOFEN 10MG TID, CLONIDINE 0.2MG HS, CELEBREX 100MG BID AND OLANZAPINE 2.5MG HS. BUT WANTS A FOLLOW UP BLOOD PRESSURE 2 HOURS AFTER ADMINISTRATION.
[2025-08-24 03:22] VITALS: BP 100/69
--- NOTE | 2025-08-24 06:35 | NUR ---
AFTER GETTING HER REGULAR NIGHT MEDS ADDED ON PATIENT SLEPT RESTFULLY OVER NIGHT WITH NO ACUTE EVENTS.
[2025-08-24 07:25] VITALS: BP 153/84
--- NOTE | 2025-08-24 09:28 | NUR ---
NOTE DURING MORNING ROUNDS IV WAS LAYING ON BEDSIDE TABLE, PATIENT SAID I DID NOT PULL IT OUT, IT FELL OUT LAST NIGHT. SITE WAS LOOKED AT, CLEAN AND DRY. IV TIP WAS VISIBLE. PATIENT ALSO STATED, "I AM MISSING $2000 AND 3 DEBIT CARDS FROM MY W[employer]". WE LOOKED THROUGH HER WALLET TOGETHER, DISCUSSING FURTHER SHE STATES "IT WAS $1000 IN 100 DOLLAR BILLS, IN A PLASTIC BAG. AND $500 IN OTHER BILLS." THEN STATES TWO DEBIT CARDS, ONE BEING A [employer] B[employer] CARD AND ONE BEING A [employer] BANK CARD. LOOKING TOGETHER IN HER WALLET, SHE WAS ABLE TO FIND ONE [place] BANK CARD, BUT STATES THERE IS ANOTHER MISSING. THERE IS SOME REPORTS OF THE PATIENT BEING FORGETFUL AT TIMES, SHE WENT FOR A WALK THIS MORNING A COUPLE TIMES AND HAD TO BE REDIRECTED BACK TO HER ROOM BY STAFF. WILL SHARE THIS INFORMATION WITH HOSPITAL LEADER TO FOLLOW UP WITH.
[2025-08-24] MEDS ORDERED: FLUO10 PO (10:07)
[2025-08-24] MEDS ORDERED: OLAN2.5 PO (10:11)
[2025-08-24] MEDS ORDERED: ZYRTEC10 M2 PO (10:11)
--- NOTE | 2025-08-24 16:09 | NUR ---
DISCHARGE NOTE PATIENT DRESSED AND SITTING AT BEDSIDE. DISCHARGE INSTRUCTIONS DISCUSSED, MEDICATION SENT TO PHARMACY, DISCUSSED WITH PATIENT. DISCUSSED FOLLOW UP APPOINTENTS. PATIENT VERABLIZED UNDERSTANDING. HAD IND RIDE FROM FAMILY MEMBER. PATIENT WHEELED OUT BY MEDICAL STAFF. NO QUESTIONS OR CONCERNS.
== END 2025-08-24 14:48 | disposition home or self-care (01) | DRG 682 ==
LOC: ER 10:09 → MEDS 10:10 → ERHOLD 10:10 → ER 10:10 → MEDS 20:22 → ERHOLD 20:22 → MEDS 08-22 15:12
PROVIDERS: Emergency Medicine; Internal Medicine; Nurse Practitioner Acute Care; Student in an Organized Health Care Education/Training Program; ADMIT Internal Medicine
DX: N17.9 Acute kidney failure, unspecified (principal); G92.8 Other toxic encephalopathy; E87.1 Hypo-osmolality and hyponatremia; E86.0 Dehydration; T50.2X5A Adverse effect of carbonic-anhydrase inhibitors, benzothiadiazides and other diuretics, initial encounter; M48.00 Spinal stenosis, site unspecified; E87.6 Hypokalemia; R94.31 Abnormal electrocardiogram [ECG] [EKG]; J45.909 Unspecified asthma, uncomplicated; F43.10 Post-traumatic stress disorder, unspecified; D64.9 Anemia, unspecified; I10 Essential (primary) hypertension; I95.89 Other hypotension; I48.0 Paroxysmal atrial fibrillation; Z95.0 Presence of cardiac pacemaker; Z88.0 Allergy status to penicillin; Z88.8 Allergy status to other drugs, medicaments and biological substances; Z88.5 Allergy status to narcotic agent; Z79.01 Long term (current) use of anticoagulants; Z79.899 Other long term (current) drug therapy; Z79.1 Long term (current) use of non-steroidal anti-inflammatories (NSAID); Z87.891 Personal history of nicotine dependence
CPT/HCPCS: 36415; 70450; 73030; 73562-LT; 80048; 80053; 81003; 82550; 83735; 84100; 85025; 85730; 93005; 93010; 94640; 94664; 94760; 96361; 96365; 96366; 96367; 97116; 97161; 97530; 99285-25; A9270; G0378; J3475; J3480; J7030; J7050